=== PATIENT | female | born 1995 | race Two or more races ===

== ENCOUNTER 2018-11-30 11:13 | Emergency (ER) | payer MEDICAID ==
[~2018-11-30] VITALS: Ht 149.9 cm; Wt 49.9 kg
--- NOTE | 2018-11-30 11:28 | NUR ---
ED Nurse Note: a/ox4. brought in by pt's sister in law due to right earache since yesterday. Denies any discharge.
[2018-11-30 11:32] VITALS: BP 130/83
--- NOTE | 2018-11-30 11:42 | Emergency Room Report ---
History of Present Illness General Chief Complaint: Earache Source: Patient Present Illness HPI Patient presents with complaints of right ear pain reports that the pain started 2 days ago last night she had felt something go inside her ear possibly felt irritation She does not have that sensation today denies any contact with Pool or hot tub denies any irritation such as Q-tip denies any fevers or chills denies any change in hearing denies any discharge or trauma Allergies: Coded Allergies: No Known Allergies (Unverified , 11/30/18) Patient History Past Medical History: see triage record Pertinent Family History: none Last Menstrual Period: Nov, 2018 Reviewed Nursing Documentation: PMH: Agreed; PSxH: Agreed Nursing Documentation-PMH Past Medical History: No Stated History Review of Systems All Other Systems: negative except mentioned in HPI Physical Exam Vital Signs Date Time Temp Pulse Resp B/P (MAP) Pulse Ox O2 Delivery O2 Flow Rate FiO2 11/30/18 11:28 98.1 81 16 130/83 100 Room Air Sp02 EP Interpretation: reviewed, normal General Appearance: well appearing, no apparent distress Head: normocephalic, atraumatic Eyes: bilateral eye PERRL, bilateral eye EOMI ENT: other - The right canal appears mildly irritated and mildly swollen however patent tympanic membrane is clear no other foreign body Neck: supple Respiratory: lungs clear, no retraction, no accessory muscle use Musculoskeletal: normal inspection Skin: normal color, no rash Lymphatic: no adenopathy Medical Decision Making Diagnostic Impression: Primary Impression: Otitis externa ER Course Patient is examined findings are most consistent with otitis externa there is no obvious Bulging or other erythema at the tympanic membrane no other obvious trauma Mastoid is soft non-boggy Patient does not have any other risk factors and will have initial conservative outpatient attempt Last Vital Signs Date Time Temp Pulse Resp B/P (MAP) Pulse Ox O2 Delivery O2 Flow Rate FiO2 11/30/18 11:32 98.1 83 16 130/83 100 Room Air Status: unchanged Disposition: HOME, SELF-CARE Condition: Stable Additional Instructions: Patient is provided with the discharge instructions notified to follow up with primary doctor in the next 2-3 days otherwise return to the er with any worsening symptoms. Please note that this report is being documented using [employer] technology. This can lead to erroneous entry secondary to incorrect interpretation by the dictating instrument. Miller Montalvo DO Nov 30, 2018 11:42
[2018-11-30] MEDS ORDERED: IBUPROFEN600 MG ORAL (11:43)
[2018-11-30] MEDS ORDERED: CORTISPORIN EAR10 ML OTIC (11:43)
[2018-11-30 11:49] VITALS: BP 130/83
--- NOTE | 2018-11-30 11:52 | NUR ---
ED Nurse Note:pt. received d/c instructions with prescriptuions and left ER with steady gait
== END 2018-11-30 11:55 | disposition home or self-care (01) ==
LOC: EMR 11:41
DX: H60.91 Unspecified otitis externa, right ear (principal)
CPT/HCPCS: 99282

== ENCOUNTER 2019-09-11 22:15 | Emergency (ER) | payer MEDICAID ==
[~2019-09-11] VITALS: Ht 162.6 cm; Wt 59.0 kg
[~2019-09-11 22:15] MED LIST: CORTISPORIN EAR10 ML OTIC; IBUPROFEN600 MG ORAL
--- NOTE | 2019-09-11 22:25 | NUR ---
ED Nurse Note: Pt walked in c/o allergic reaction itchy throat, skin rash, and headache since 09/10. Pt stated she ate shrimp and reaction occured. Pt touched shrimp 09/11 and same reaction occured.
[2019-09-11 22:26] VITALS: BP 130/89
[2019-09-11 23:00] VITALS: BP 130/89
--- NOTE | 2019-09-11 23:00 | NUR ---
ER DISCHARGE NOTE: Patient is cleared to be discharged per ERMD, pt is aox4, on room air, with stable vital signs. pt was given dc and prescription instructions, pt was able to verbalize understanding, pt id band removed. pt is able to ambulate with steady gait. pt took all belongings.
[2019-09-11] MEDS ORDERED: BENADRYL25 MG ORAL (23:01)
--- NOTE | 2019-09-11 23:01 | Emergency Room Report ---
History of Present Illness General Chief Complaint: Allergic Reaction Source: Patient Present Illness HPI 24-year-old female with no past medical history. She presents with chief complaint of sore throat itchy tongue and generalized itchiness. Onset yesterday. This occurred after she was hanging some shrimp. She never had this problem before. She H from before without any problem. She said it does hurt her throat when she swallows. No nausea no vomiting. Does have a slight headache. Nothing made it better. Nothing made it worse. Has not take anything for this. Denies any other complaint. Allergies: Coded Allergies: No Known Allergies (Unverified , 11/30/18) Patient History Past Medical History: see triage record, old chart reviewed Past Surgical History: none Pertinent Family History: none Social History: Denies: smoking Last Menstrual Period: 09/10/2019 Now: No Immunizations: other Reviewed Nursing Documentation: PMH: Agreed; PSxH: Agreed Nursing Documentation-PMH Past Medical History: No Stated History Review of Systems Eye: Denies: eye pain, blurred vision ENT: Reports: nose congestion, throat pain; Denies: ear pain, throat swelling Respiratory: Denies: cough, shortness of breath Cardiovascular: Denies: chest pain, palpitations Gastrointestinal: Denies: abdominal pain, diarrhea, nausea, vomiting Musculoskeletal: Denies: back pain, joint pain Skin: Denies: rash Neurological: Denies: headache, numbness Endocrine: Denies: increased thirst, increased urine Hematologic/Lymphatic: Denies: easy bruising All Other Systems: negative except mentioned in HPI Physical Exam Vital Signs Date Time Temp Pulse Resp B/P (MAP) Pulse Ox O2 Delivery O2 Flow Rate FiO2 09/11/19 22:19 98.6 74 16 130/89 (103) 98 Room Air Vitals normal Sp02 EP Interpretation: reviewed, normal General Appearance: well appearing, no apparent distress, alert Head: normocephalic, atraumatic Eyes: bilateral eye PERRL, bilateral eye EOMI ENT: hearing grossly normal, normal pharynx Neck: full range of motion, supple, no meningismus Respiratory: chest non-tender, lungs clear, normal breath sounds Cardiovascular #1: regular rate, rhythm, no murmur Gastrointestinal: normal bowel sounds, non tender, no mass, no organomegaly, no bruit, non-distended Musculoskeletal: back normal, gait/station normal, normal range of motion Psychiatric: mood/affect normal Medical Decision Making Diagnostic Impression: Primary Impression: Sorethroat Additional Impression: Itching ER Course Patient said that she is itching but denies see no rash. She is not scratching herself. She looks very comfortable. With a sore throat and headache, I suspect this may be a mild viral illness. No evidence of anaphylaxis. No tongue swelling. No pneumonia. Will discharge home. Last Vital Signs Date Time Temp Pulse Resp B/P (MAP) Pulse Ox O2 Delivery O2 Flow Rate FiO2 09/11/19 22:29 75 16 Room Air 09/11/19 22:26 98.6 130/89 98 Status: improved Disposition: HOME, SELF-CARE Condition: Stable Scripts Diphenhydramine Hcl* (BENADRYL*) 25 Mg Capsule 50 MG ORAL Q6H PRN for Itching, #30 CAP Prov: Ed Anderson MD 09/11/19 Referrals: NOT CHOSEN IPA/,REFERRING (PCP) Additional Instructions: Follow-up with your doctor in 7 days. Return if symptoms worsen. Ed Anderson MD Sep 11, 2019 23:01
== END 2019-09-11 23:00 | disposition home or self-care (01) ==
LOC: EMR 22:24
DX: J02.9 Acute pharyngitis, unspecified (principal); L29.9 Pruritus, unspecified
CPT/HCPCS: 99282